=== PATIENT | male | born 1960 | race Caucasian/White ===

== ENCOUNTER 2022-12-12 08:39 | Day surgery (SDC) | payer OTHER ==
[~2022-12-12] VITALS: Ht 188 cm; Wt 88.5 kg
[2022-12-12] MEDS ORDERED: KETOROLAC 30 MG/ML VIAL ONE (09:11)
[2022-12-12] MEDS ORDERED: LIDOCAINE 2% 100 MG/5 ML UJET TP ONE (09:11)
[2022-12-12] MEDS ORDERED: diphenhydrAMINE 50 MG/ML VIAL ONE (09:11)
== END 2022-12-12 10:37 | disposition home or self-care (01) ==
LOC: MDS 08:39 → MMU 08:40 → MDS 10:37
PROVIDERS: ATTEND Internal Medicine Gastroenterology
DX: Z12.11 Encounter for screening for malignant neoplasm of colon (principal); K64.8 Other hemorrhoids; Z86.010 Personal history of colon polyps; I10 Essential (primary) hypertension; Z85.828 Personal history of other malignant neoplasm of skin; Z90.89 Acquired absence of other organs; Z79.899 Other long term (current) drug therapy; Z20.822 Contact with and (suspected) exposure to COVID-19
CPT/HCPCS: J1200; J1885